=== PATIENT | female | born 1940 ===

== ENCOUNTER 2022-05-15 21:09 | Inpatient (IN) ==
[2022-05-16] MEDS ORDERED: ALBUT/IPRATROP 3MG/0.5MG NEB 3 ML VIAL NEB PRN (10:28)
--- NOTE | 2022-05-16 10:35 | History & Physical Report ---
Date of Service May 16, 2022 Assessment & Plan (1) GI bleed: Plan: presented from [facility] w/ fatigue, nausea, melena since 05/15. Also tested positive for COVID hgb 11.5, INR 1, BUN 32, Cr 1.24 at [facility]. Noted black melanotic stools +fecal occult, no hx GI bleeding in past (however noted to have passed clots in stool in the past) Admit PCU hall monitor EKG ordered, CXR for eval given covid Gi consulted PPI IV BID given melena/possible UGIB Pain control/antiemetics prn CTAP for eval given hx adhesive disease/bowel obstructions/surgeries pending imaging, consult w/ general surgery NPO x sips Labs now Hold HTN medications for now given dehydration, VSS BP 153/79 (2) Melena: Plan: large melena stool 05/15, + at [facility] PPI IV BID ordered, GI consulted CTAP ordered for eval as above given abdominal pain reported (3) COVID-19: Plan: + at [facility], reported fatigue/nausea repeat testing ordered maintaining COVID isolation precautions Supplemental O2 to maintain sats Check CRP/ESR Likely need to initiate decadron IV given SpO2 requirement however will discuss w/ supervising provider given GI bleeding (4) H/O: HTN (hypertension): Plan: on nifedipine , valsartan daily on hold currently while hydrating/imaging BP 153/79 Admission and Anticipated Discharge Date Admission Date: May 16, 2022 History of Present Illness Chief Complaint: GI bleed, melena Primary Care Provider: NO PCP 81yo female presented from [facility] with complaints of melena/GI bleed. Nausea, fatigue, black stools that began 05/15. Not on anticoagulation and never had GI bleed. Chronic intermittent crampy abdominal pain. HPI from OSH reports bowel obstructions requiring surgery before. Outside hgb reported 11.5, BUN 32, Cr 1.24. Incidentally also tested positive for COVID. SpO2 92% on room air noted, however prior to transfer appears had been 86% on room air and placed on supplemental O2, currently 97%on 2L. Per patient, nauseated since Wednesday, no vomiting. Has had 3 abdominal surgeries for removal of adhesions. Has pain across lower abdomen. Upon evaluation, patient reporting has had nausea/fatigue since Wednesday. Had some toast on Wednesday, some small amount of macaroni w/ butter on Wednesday. Large melanotic stool yesterday AM, nothing since then. No bowel movements but states she wasn't given anything to eat at [facility] either. Placed on 2L o2 at [facility] for low oxygen. She does have a moist cough but denies feeling short of breath. She notes initial issues with abdominal adhesions in 2000 when she underwent surgery with ex lap for adhesion takedown w/ Dr Stinson, then had recurrent episode in 2009 where she required removal of part of her small bowel and colon as they were twisted upon each other. Then she notes about 5-6 years ago in 2016 she had another episode of abdominal pain requiring surgery and she had her intestines cut and transferred ultimately to [place]. All other surgeries. She notes for about the past 10 months has had lower abdominal cramping and issues with moving her bowels since December. She does try and watch what she eats, but had been taking Zofran over the summer with worsening constipation. She does have lower abdominal pain currently, worse in LLQ and suprapubic region but reported generalized cramping/pain. No nausea at present but had been given IV Zofran at [place] w/ [facility]. No history of PE/DVT but has had clots in stool in past. Has been vaccinated for COVID and booster x 2. Did not get 3rd booster yet. Currently + for covid. Does have congestion but unable to bring up any sputum. Discussed obtaining CTAP and CXR for eval, labs pending, and GI consultation. Will order protonix IV BID for now. She is asking about if she is able to eat. Allergies Allergy/AdvReac Type Severity Reaction Status Date / Time No Known Allergies Allergy Unverified 05/16/22 11:27 Home Medications Medication Instructions Recorded Confirmed Type acetaminophen 650 mg 1,300 mg PO HS 05/16/22 05/16/22 History tablet,extended release melatonin 5 mg tablet 5 mg PO HS PRN Sleep 05/16/22 05/16/22 History nifedipine 30 mg tablet,extended 30 mg PO DAILY 05/16/22 05/16/22 History release 24 hr valsartan 160 mg tablet 160 mg PO DAILY 05/16/22 05/16/22 History vitamins A,C,M-tnxw-syuzdh 14,320 1 cap PO BID 05/16/22 05/16/22 History unit-226 mg-200 unit capsule (PreserVision AREDS) Past Med/Surg History Medical History (Updated 05/16/22 @ 10:33 by Lucy Aden PA-C) Adhesion of abdominal wall H/O: HTN (hypertension) Surgical History (Updated 05/16/22 @ 10:24 by Lucy Aden PA-C) H/O: hysterectomy S/P appendectomy S/P cholecystectomy Social History Smoking Status: Current every day smoker Cigarettes Per Day: 10; Second Hand Exposure: No; Do You Dip or Chew Tobacco: No; Tobacco Cessation Education Requested by Patient: No Hx Alcohol Use: Yes Alcohol type: wine Hx Substance Use: No Communication Ability: Effective Scalp Specialist Required: No Beliefs That Will Affect Care: None Current Living Situation: Family Current Living Situation Comment: lives with son Other Information That Helps Us Care for You: No Feels Safe at Home: Yes Safety Concerns: Feels Safe At This Time Assistive Devices: Denture - Upper, Denture - Lower and Glasses Review of Systems Review of Systems: All systems reviewed & are unremarkable except as noted in HPI & below Physical Exam Physical Exam: General: frail elderly woman sitting up in bed, NAD, just had labs drawn, general pallor HEENT: head normocephalic, atraumatic, mm slightly dry, trachea midline Resp: diminished in the bases w/ faint bilateral crackles, no wheezing, on 2L NC, no distress/tachypnea CV: RRR, no m/r/g, no pitting edema/calf tenderness, pulses palpable GI: +BS throughout (possibly slightly hypoactive RUQ), minimally tender epigastric region, moderate tenderness reported w/ palpation LLQ/suprapubic region, +slight distension, no guarding/rigidity, prior abd incisions noted MSK/Neuro: moves all extremities, follows commands, no focal deficit Psych: AOx3, pleasant and cooperative Skin: cool, dry Results & Data Results & Data ([facility]) Vital Signs (Past 12 Hours) Vital Signs Temp Resp BP Pulse Ox O2 Del Method O2 Flow Rate 05/16/22 09:33 36.9 C 16 153/79 H 97 Nasal Cannula 2 05/16/22 09:29 36.9 C 16 153/79 H 94 Nasal Cannula 2 Laboratory Results 05/16/22 05/16/22 05/16/22 Range/Units 10:47 10:47 10:47 WBC (4.8-10.8) K/ul RBC (3.93-5.22) M/uL Hgb (12.0-16.0) g/dl Hct (34.1-44.9) % MCV (80.0-100.0) fL MCH (25.0-34.0) pg MCHC (32.0-36.0) g/dL RDW Std Deviation (36.4-46.3) fL RDW Coeff of Edie (11.5-14.5) % Plt Count (130-400) K/uL MPV (9.4-12.3) fL Immature Gran % (Auto) % Neut % (Auto) % Lymph % (Auto) % Emery % (Auto) % Eos % (Auto) % Baso % (Auto) % Neut # (Auto) (1.4-6.5) K/uL Lymph # (Auto) (1.2-3.4) K/uL Emery # (Auto) (0.24-0.82) K/uL Eos # (Auto) (0-0.50) K/uL Baso # (Auto) (0-0.2) K/uL Immature Gran # (Auto) (0.00-0.02) K/uL ESR 26 (0-30) mm/hr Sodium Potassium Chloride Carbon Dioxide Anion Gap BUN Creatinine Est Cr Clr Drug Dosing Est GFR ( Amer) Est GFR (Non-Af Amer) BUN/Creatinine Ratio Glucose Calcium Magnesium Iron Pending TIBC Pending Unsaturated IBC Pending Transferrin % Sat Pending Ferritin Total Bilirubin AST ALT Alkaline Phosphatase C-Reactive Protein Total Protein Albumin Globulin Albumin/Globulin Ratio Procalcitonin Pending 05/16/22 05/16/22 Range/Units 10:47 10:47 WBC 5.46 (4.8-10.8) K/ul RBC 3.22 L (3.93-5.22) M/uL Hgb 10.0 L (12.0-16.0) g/dl Hct 29.6 L (34.1-44.9) % MCV 91.9 (80.0-100.0) fL MCH 31.1 (25.0-34.0) pg MCHC 33.8 (32.0-36.0) g/dL RDW Std Deviation 47.8 H (36.4-46.3) fL RDW Coeff of Edie 14.1 (11.5-14.5) % Plt Count 168 (130-400) K/uL MPV 9.8 (9.4-12.3) fL Immature Gran % (Auto) 0.2 % Neut % (Auto) 61.0 % Lymph % (Auto) 27.7 % Emery % (Auto) 9.2 % Eos % (Auto) 1.5 % Baso % (Auto) 0.4 % Neut # (Auto) 3.34 (1.4-6.5) K/uL Lymph # (Auto) 1.51 (1.2-3.4) K/uL Emery # (Auto) 0.50 (0.24-0.82) K/uL Eos # (Auto) 0.08 (0-0.50) K/uL Baso # (Auto) 0.02 (0-0.2) K/uL Immature Gran # (Auto) 0.01 (0.00-0.02) K/uL ESR (0-30) mm/hr Sodium Pending Potassium Pending Chloride Pending Carbon Dioxide Pending Anion Gap Pending BUN Pending Creatinine Pending Est Cr Clr Drug Dosing Pending Est GFR ( Amer) Pending Est GFR (Non-Af Amer) Pending BUN/Creatinine Ratio Pending Glucose Pending Calcium Pending Magnesium Pending Iron TIBC Unsaturated IBC Transferrin % Sat Ferritin Pending Total Bilirubin Pending AST Pending ALT Pending Alkaline Phosphatase Pending C-Reactive Protein Pending Total Protein Pending Albumin Pending Globulin Pending Albumin/Globulin Ratio Pending Procalcitonin Supervising Physician Co-Signing Physician Notes Patient seen and examined at bedside. Obtained history and physical examination during face to face encounter. Reviewed above note and agree with it. Discussed plan of care with Aden APC, and patient. Patient will be closely monitored for possible GI bleed, check hemoglobin. NPO, and consult GI for possible scope. Hold steroids for COVID as inflammatory markers are negative in setting of GI bleed. PG Care Time/CCT Total # of Minutes Spent Total Time Spent with Patient: Total time spent is greater than 50% in coordination of care (as documented) at patient's floor/unit and/or counseling patient: Coding Level of Care Code 72922 Initial Inpt Care Lvl 3 Diagnoses GI bleed K92.2 Melena K92.1 COVID-19 U07.1 H/O: HTN (hypertension) Z86.79
[2022-05-16 11:00] LABS: Basophils # (auto) 0.02 K/uL (0-0.2); Basophils % (auto) 0.4 %; Eosinophils # (auto) 0.08 K/uL (0-0.50); Eosinophils % (auto) 1.5 %; Hematocrit (blood only) 29.6 % (34.1-44.9); Immature Granulocytes # (auto) 0.01 K/uL (0.00-0.02); Immature Granulocytes % (auto) 0.2 %; Lymphocytes # (auto) 1.51 K/uL (1.2-3.4); Lymphocytes % (auto) 27.7 %; Mean Corpuscular Hemoglobin 31.1 pg (25.0-34.0); Mean Corpuscular Hgb Conc 33.8 g/dL (32.0-36.0); Mean Corpuscular Volume 91.9 fL (80.0-100.0); Mean Platelet Volume 9.8 fL (9.4-12.3); Monocytes % (auto) 9.2 %; Neutrophils # (auto) 3.34 K/uL (1.4-6.5); Platelet Count 168 K/uL (130-400); RDW Coefficient of Variation 14.1 % (11.5-14.5); RDW Standard Deviation 47.8 fL (36.4-46.3); Red Blood Count 3.22 M/uL (3.93-5.22); White Blood Count 5.46 K/ul (4.8-10.8)
[2022-05-16] MEDS ORDERED: ONDANSETRON INJ 2 MG/ML 2 ML VIAL IV PRN (11:22)
[2022-05-16] MEDS ORDERED: ACETAMINOPHEN 1,000 MG/100 ML VIAL IV PRN (11:22)
[2022-05-16] MEDS ORDERED: POTASSIUM CHLORIDE 10 MEQ in SODIUM CHLORIDE 0.9% 1000ML 1,000 ML IV SCH (11:30)
[2022-05-16 11:33] LABS: Alanine Aminotransferase 12 U/L (7-52); Albumin Globulin Ratio 1.4 (0.9-2); Albumin Level 3.6 gm/dl (3.4-5.0); Alkaline Phosphatase 58 U/L (34-104); Anion Gap 5 (3-11); Aspartate Aminotransferase 21 U/L (13-39); BUN Creatinine Ratio 21.4 (10-20); Bilirubin,Total 0.4 mg/dl (0.2-1.0); Blood Urea Nitrogen 22 mg/dl (6-23); C Reactive Protein < 0.50 mg/dl (0-0.5); Calcium 9.1 mg/dl (8.5-10.1); Carbon Dioxide 28 mmol/L (21-32); Chloride 102 mmol/L (98-107); Creatinine Clr Calc Pharmacy 29.2 ml/min; Est GFR (African American) 58.2 ml/min; Est GFR (Non-African American) 50.2 ml/min; Globulin 2.6 gm/dl (2.5-4.0); Glucose 77 mg/dl (70-99(Fasting)); Iron 33 mcg/dl (35-150); Magnesium 1.8 mg/dl (1.7-2.4); Potassium 4.6 mmol/L (3.5-5.1); Sodium 135 mmol/L (136-145); Total Iron Binding Cap Calc 293 mcg/dl (250-450); Total Protein 6.2 gm/dl (6.0-8.3); Transferrin (FE) Percent Satur 11 % (15-50); Unsaturated Iron Binding Cap 260 mcg/dl (155-355)
[2022-05-16] MEDS ORDERED: OPTIRAY 350 100ml IV ONE (11:40)
[2022-05-16 11:42] LABS: Ferritin 170.1 ng/ml (8-388)
--- NOTE | 2022-05-16 11:57 | CT Scan Report ---
CT OF THE ABDOMEN AND PELVIS WITH CONTRAST CLINICAL HISTORY: GI bleed, melena, hx obstruction, abdominal pain. COMPARISON STUDY: None. TECHNIQUE: Following IV administration of 86 mL of Optiray, axial images of the abdomen and pelvis we re obtained from the lung bases to the proximal femurs. Images were reviewed in the axial, sagittal, and coronal planes. IV contrast was administered without complication. Automated exposure control wa s utilized for the study. A dose lowering technique was utilized adhering to the principles of ALARA . CT DOSE: 211.58 mGy.cm FINDINGS: Lung bases are unremarkable. No pneumatosis, free air or portal venous gas is present. Live r, adrenal glands, kidneys and pancreas are unremarkable. Calcifications within the renal sinuses are likely vascular in etiology. There is no hydronephrosis. There is no biliary or pancreatic ductal di latation. Pancreatic glandular atrophy is noted. Hypodensity along the splenic capsule is likely traveling passenger agent teresa. IVC filter is in place. There is extensive plaque within the abdominal aorta and branch vessels. Abdominal aorta is ectatic, measuring 2.6 cm. There is no evidence for a bowel obstruction. Caliber and wall thickness of small and large bowel are normal. Colonic diverticulosis is noted without evide nce for acute diverticulitis. There is no lymphadenopathy. No ascites is present. No acute fracture o r suspicious lesion is identified within the visualized skeletal structures. IMPRESSION: 1. No acute process within the abdomen or pelvis. 2. No bowel obstruction. No bowel wall thickening. Colonic diverticulosis without evidence for acute diverticulitis. No source for GI bleed identified. 3. Extensive atherosclerotic plaque of the abdominal aorta and branch vessels. Ectatic abdominal aort a, measuring 2.6 cm. ACT 112: Negative or not required by law. Electronically signed by: Gualberto Delgadillo M.D. 05/16/2022 11:55 AM
--- NOTE | 2022-05-16 12:36 | XRay Report ---
XR chest 1V portable CLINICAL HISTORY: COVID, hypoxia COMPARISON STUDY: No previous studies for comparison. FINDINGS: Lung volumes are normal. Lungs are clear. There is no pneumothorax or pleural effusion. Car diac size is normal. Mediastinal contours are normal. There is no evidence for pulmonary edema. IMPRESSION: No acute cardiopulmonary findings. ACT 112: Negative or not required by law. Electronically signed by: Gualberto Delgadillo M.D. 05/16/2022 12:35 PM
--- NOTE | 2022-05-16 12:40 | Gastrointestinal Consultation ---
Date of Consultation May 16, 2022 Assessment & Plan (1) COVID-19: (2) Melena: 81 yo female with history of multiple abd surgeries and adhesions causing bowel obstructions in the past admitted with nausea and 1 episode of melena yesterday at home. Hemodynamically stable. COVID positive with cough and O2 requirement. No signs of on-going GI bleed. Plan Conservative mgt IV PPI BID Clear liquids today. No NSAIDs. Mgt of COVID per primary service CT pending. History of Present Illness Reason for Consultation: melena x 1, nausea Attending Physician: Melquiades Kauffman History of Present Illness 81 yo female with HTN and history of multiple abd surgeries and bowel obstructio ns related ot adhesions s/p small bowel and partial colon resection in the past. Allie has chronic abd related ot adhesions. She presented from OSH after going there with complaints of nausea since Wednesday. She has problems with constipation and has to take MiraLax at home. She did not have a BM since Wednesday until yesterday when she had an episode of black stool at home and then proceeded to go the ER. She has not had a BM since. Her hgb is 10 (baseline unknown). BUN 32 and cr 1.2. She had CT this AM which is pending at this time. She denies any abd pain at present. No known history of UGI bleed. She is also noted to have a cough and is COVID positive. Requiring O2 at 2L/min to keep sat in the 90's. If possible she would like ot avoid procedures. Not on PPI at home. She does take 1-2 ibuprofen a few times a week at home. Allergies Allergy/AdvReac Type Severity Reaction Status Date / Time No Known Allergies Allergy Unverified 05/16/22 11:27 Home Medications Medication Instructions Recorded Confirmed Type acetaminophen 650 mg 1,300 mg PO HS 05/16/22 05/16/22 History tablet,extended release melatonin 5 mg tablet 5 mg PO HS PRN Sleep 05/16/22 05/16/22 History nifedipine 30 mg tablet,extended 30 mg PO DAILY 05/16/22 05/16/22 History release 24 hr valsartan 160 mg tablet 160 mg PO DAILY 05/16/22 05/16/22 History vitamins A,C,G-zdfo-kaqloo 14,320 1 cap PO BID 05/16/22 05/16/22 History unit-226 mg-200 unit capsule (PreserVision AREDS) Patient History Medical History (Updated 05/16/22 @ 10:33 by Lucy Aden PA-C) Adhesion of abdominal wall H/O: HTN (hypertension) Surgical History (Updated 05/16/22 @ 10:24 by Lucy Aden PA-C) H/O: hysterectomy S/P appendectomy S/P cholecystectomy Social History Smoking Status: Current every day smoker Cigarettes Per Day: 10; Second Hand Exposure: No; Do You Dip or Chew Tobacco: No; Tobacco Cessation Education Requested by Patient: No Hx Alcohol Use: Yes Alcohol type: wine Hx Substance Use: No Communication Ability: Effective Felt Carbonizer Required: No Beliefs That Will Affect Care: None Current Living Situation: Family Current Living Situation Comment: lives with son Other Information That Helps Us Care for You: No Feels Safe at Home: Yes Safety Concerns: Feels Safe At This Time Assistive Devices: Denture - Upper, Denture - Lower and Glasses Review of Systems Review of Systems: All systems reviewed & are unremarkable except as noted in HPI & below Physical Exam Constitutional: WD/WN, vitals as above Respiratory: normal respiratory effort, lungs clear to auscultation Cardiovascular: RRR, no murmur, no edema Gastrointestinal (Abdomen): Inspection/Auscultation: + abdominal surgical scar Percussion/Palpation: + abdomen tender (mild) and abdomen soft Results & Data ([facility]) Vital Signs (Past 12 Hours) Vital Signs Temp Pulse Resp BP Pulse Ox O2 Del Method O2 Flow Rate 05/16/22 12:22 36.7 C 71 16 165/76 H 94 Room Air 05/16/22 09:33 36.9 C 16 153/79 H 97 Nasal Cannula 2 05/16/22 09:29 36.9 C 16 153/79 H 94 Nasal Cannula [address] pending
[2022-05-16] MEDS: PANTOprazole 40 MG in SYRINGE 0 ML IV SCH ×2 (12:48→19:37)
[2022-05-16] MEDS: MAGNESIUM SULFATE / D5W 1 GM/100 ML BAG IV SCH ×2 (12:49→14:31)
[2022-05-16] MEDS ORDERED: IRON SUCROSE 200 MG in 0.9 % SODIUM CHLORIDE 100 ML IV ONE (14:30)
[2022-05-16] MEDS ORDERED: SODIUM CHLORIDE 0.9% 1000ML 1,000 ML IV SCH (15:15)
[2022-05-16 17:50] LABS: Hematocrit (blood only) 30.9 % (34.1-44.9); Hemoglobin 10.4 g/dl (12.0-16.0)
[2022-05-16] MEDS: NIFEdipine EXTENDED REL 30 MG TABCR PO SCH (19:36)
[2022-05-17 06:13] LABS: Hematocrit (blood only) 29.1 % (34.1-44.9); Hemoglobin 9.8 g/dl (12.0-16.0); Mean Corpuscular Hemoglobin 31.3 pg (25.0-34.0); Mean Corpuscular Hgb Conc 33.7 g/dL (32.0-36.0); Mean Platelet Volume 9.8 fL (9.4-12.3); Platelet Count 147 K/uL (130-400); RDW Standard Deviation 47.1 fL (36.4-46.3); Red Blood Count 3.13 M/uL (3.93-5.22); White Blood Count 7.72 K/ul (4.8-10.8)
[2022-05-17 06:37] LABS: Albumin Globulin Ratio 1.4 (0.9-2); Albumin Level 3.4 gm/dl (3.4-5.0); BUN Creatinine Ratio 17.2 (10-20); Bilirubin,Total 0.3 mg/dl (0.2-1.0); Calcium 8.7 mg/dl (8.5-10.1); Creatinine Clr Calc Pharmacy 34.8 ml/min; Est GFR (African American) 71.4 ml/min; Est GFR (Non-African American) 61.6 ml/min; Globulin 2.5 gm/dl (2.5-4.0); Magnesium 2.2 mg/dl (1.7-2.4); Potassium 4.5 mmol/L (3.5-5.1); Total Protein 5.9 gm/dl (6.0-8.3)
[2022-05-17 07:05] LABS: Vitamin B12 556 pg/ml (180-914)
--- NOTE | 2022-05-17 07:48 | Hospitalist Progress Note ---
Date of Service May 17, 2022 Assessment & Plan (1) COVID-19: Plan: Admitted with melena, incidentally found positive prior to transfer to our facility as direct admission as O2 dropped to 86 % on RA (no imaging obtained) -- hx smoking, 10-12 cigarettes daily currently, never followed w/ pulm, no prior PFTs or maintenance inhalers Reports nausea/fatigue symptoms since this past Wednesday (05/11), no sick contacts that she is aware of and no prior + Covid testing. Has been vaccinated and boosted x 2 Remains on isolation precautions CRP <0.5, WBC without elevation. Afebrile EKG w/o ischemic changes, noted PACs. NSR on monitor w PACs on telemetry O2 via 2L on admit and was actually 95% on RA evening 05/16 Was utilizing 2L this morning with acute worsening requirements to 5L --> 7L --> 12L oxymask this morning around 11am and patient was evaluated with coarse breath sounds/rales throughout and reported clear/white sputum but not really able to clear secretions very well and added hypertonic saline nebulizers to help CRP repeated, still without elevation Despite patient with IVC filter seen on CTAP placed in [id number] --> ordered CTA for PE given +COVID testing * CTA NEGATIVE for PE, but did note moderate-severe emphysema, NO consolidation typical for PNA or pleural effusion. Fluid/debris is seen within the lower lobe airways bilaterally, left greater than right. This could represent mucous plugging. Correlate clinically for evidence of aspiration. Given acute increase in O2 requirement, appears mucus plugging could account for such, however did check BNP given increased requirement and hyponatremia on AM labs (TSH wnl) and will check ECHO for completeness given no prior records. Hypertonic saline nebs as ordered, changed duonebs to scheduled Continue incentive spirometer as previously ordered (has been using), added flutter valve, mucinex Avoiding Decadron currently in setting of GI bleed/no elevation in inflammatory markers, however if without significant improvements by this evening, will consider adding Azithro/Decadron DVT prophylaxis -- not on heparin/Lovenox in setting of GI bleed, has been ambulating, continue SCDs/jaki hose and monitor for any evidence DVT (2) GI bleed: Plan: presented from [facility] w/ fatigue, nausea, melena since 05/15. Also tested positive for COVID hgb 11.5, INR 1, BUN 32, Cr 1.24 at [facility]. Noted black melanotic stools +fecal occult, no hx GI bleeding in past (however noted to have passed clots in stool in the past) CTAP obtained given prior reported for obstructions/resection and not passing gas/abdominal pain on exam 05/16 --> no obstructions. No infectious etiology. Of note, DOES note IVC filter -- again, patient denies known hx PE/DVT and was told that they didn't know what was wrong with her in [id number] w/ the bowel operation which nicked her bowel requiring tx to [place] for "blood infection", ?septic emboli. Req outpatient records for prior surgeries from [facility] consulted but no plans for scope inpatient, can have outpatient follow up and rec'd advancement of diet from clears on admission to regular AHA diet Hgb stable on repeat even with IVF ordered on admit as initially NPO for possible scope No further bowel movements but is passing gas/no pain on exam (does have slight epigastric discomfort -- consider adding carafate pending response) Continue PPI BID -- can convert to PO BID this evening vs AM. Fecal occult ordered for testing for confirmation. Had been taking 200mg ibuprofen couple of times in the afternoon for pain. No NSAIDs Clear liquid diet on 05/16 -> advanced to AHA diet today, passing gas, denies abdominal pain however does have slight epigastric discomfort -- consider adding carafate if any issues Monitor CBC on repeat or with any melanotic/bleeding in stool (3) Melena: Plan: large melena stool 05/15, + at [facility], nothing since PPI IV BID ordered, GI consulted CTAP as above, monitor CBC/any further bleeding. Encouraged bowel regimen, add miralax daily. She reports passing LOTs of gas, no increased abdominal pain. No obstruction on CTAP (4) H/O: HTN (hypertension): Plan: on nifedipine 30mg , valsartan 160mg daily Had been held while NPO on admit/IVF ordered, nifedipine resumed evening 05/16 Resumed losartan this morning, BP/Cr stable 141/64 Given atherosclerotic plaque on CTAP imaging, check lipids in AM/statin for prevention (5) Emphysema lung: Plan: noted on CTAP, no prior dx or use of maintenance inhalers at home or prior pulmonary follow up/PFT testing outpatient Tx for COVID as outlined above but would rec patient w/ pulm f/u at d/c for outpt PFT, addition LABA/LAMA (6) Tobacco consumption: Plan: current smoker, reports 10-12 cigarettes daily- no cravings at this time/need for nicotine patch encouraged cessation, she is well aware of detriments to her health continued discussions, rec nicotine patch/gum at d/c if patient agreeable Plan continued inpatient stay advanced to regular diet, monitor for any further bleeding added hypertonic saline/changed duonebs to scheduled, incentive sp irometer/flutter valve, mucinex Will consult PT/OT for tomorrow Admission and Anticipated Discharge Date Admission Date: May 16, 2022 Subjective Eval around 11am, up to 12L Oxymask. States not feeling extremeley short of breath but does have a moist cough and some shortness of breath.Coughing up clear/white sputum, however not coughing up a whole bunch. Is a smoker , about 10-12 per day. Discussed IVC filter on imaging. She states in [id number] when she had the nicked bowel/bleeding/blood infection, they told her "I don't have a clue" and told her she needed it even though she didn't want it. She denies ever having a DVT or PE, however she does also note she was so sick during that time that maybe someone may have mentioned it but she doesn't remember but that she read lots of things online about it not working like it used to. 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 States anytime she's ever had a CXR they said she's fine. Not on any maintenance inhalers. Discussed checking labs, she is agreeable to remdesivir if needed/steroids if CRP elevated. She does have some epigastric pressure but no chest pain/radiation of pain. No abdominal pain reported and passing lots of gas. Urinating frequently without issue. Denies any fever/chills. No nausea/vomiting. Checking CT chest to eval for PE Review of Systems Review of Systems: All systems reviewed & are unremarkable except as noted in HPI & below Physical Exam Physical Exam: General: frail elderly woman sitting up in bed, NAD but up to 12L Oxymask with SpO2 96%, fatigued appearing HEENT: head normocephalic, atraumatic, mmm, trachea midline Resp: diminished in the bases w/ faint bilateral crackles, COARSE breath sounds/ rales throughout posterior lung ruiz, end expiratory wheezing, on 12L Oxymask, no tachypnea, prolonged expiratory phase noted, +moist cough CV: RRR, no m/r/g, no pitting edema/calf tenderness, pulses palpable GI: +BS, distended, nontender w/ exception slight tenderness epigastric region MSK/Neuro: no focal deficit, no slurred speech/facial droop, follows commands Psych: AOx3, pleasant and cooperative Skin: warm, dry Results & Data Results & Data ([facility]) Vital Signs (Past 12 Hours) Vital Signs Temp Pulse Resp BP Pulse Ox O2 Del Method O2 Flow Rate 05/17/22 04:47 36.7 C 64 18 136/64 95 Nasal Cannula 2.0 05/16/22 23:13 36.7 C 61 18 167/75 H 97 Nasal Cannula 2.0 05/16/22 19:52 36.9 C 58 L 18 157/75 H 97 Nasal Cannula 2.0 Laboratory Results 05/17/22 05/17/22 05/17/22 Range/Units 05:46 05:46 05:46 WBC (4.8-10.8) K/ul RBC (3.93-5.22) M/uL Hgb (12.0-16.0) g/dl Hct (34.1-44.9) % MCV (80.0-100.0) fL MCH (25.0-34.0) pg MCHC (32.0-36.0) g/dL RDW Std Deviation (36.4-46.3) fL RDW Coeff of Edie (11.5-14.5) % Plt Count (130-400) K/uL MPV (9.4-12.3) fL Immature Gran % (Auto) % Neut % (Auto) % Lymph % (Auto) % [place] % (Auto) % Eos % (Auto) % Baso % (Auto) % Neut # (Auto) (1.4-6.5) K/uL Lymph # (Auto) (1.2-3.4) K/uL [place] # (Auto) (0.24-0.82) K/uL Eos # (Auto) (0-0.50) K/uL Baso # (Auto) (0-0.2) K/uL Immature Gran # (Auto) (0.00-0.02) K/uL ESR (0-30) mm/hr Sodium 134 L (136-145) mmol/L Potassium 4.5 (3.5-5.1) mmol/L Chloride 102 (98-107) mmol/L Carbon Dioxide 26 (21-32) mmol/L Anion Gap 6 (3-11) BUN 15 (6-23) mg/dl Creatinine 0.87 (0.6-1.2) mg/dl POC Creatinine (0.6-1.3) mg/dl Est Cr Clr Drug Dosing 34.8 ml/min Est GFR ( Amer) 71.4 ml/min Est GFR (Non-Af Amer) 61.6 ml/min BUN/Creatinine Ratio 17.2 (10-20) Glucose 69 L (70-99(Fasting)) mg/dl Calcium 8.7 (8.5-10.1) mg/dl Magnesium 2.2 (1.7-2.4) mg/dl Iron (35-150) mcg/dl TIBC (250-450) mcg/dl Unsaturated IBC (155-355) mcg/dl Transferrin % Sat (15-50) % Ferritin (8-388) ng/ml Total Bilirubin 0.3 (0.2-1.0) mg/dl AST 21 (13-39) U/L ALT 11 (7-52) U/L Alkaline Phosphatase 55 (34-104) U/L C-Reactive Protein (0-0.5) mg/dl Total Protein 5.9 L (6.0-8.3) gm/dl Albumin 3.4 (3.4-5.0) gm/dl Globulin 2.5 (2.5-4.0) gm/dl Albumin/Globulin Ratio 1.4 (0.9-2) Vitamin B12 556 (180-914) pg/ml Folate > 22.30 (>5.38) ng/ml Procalcitonin (0-0.5) ng/ml TSH 1.092 (0.300-4.500) uIu/ml SARS-CoV-2 (PCR) (Negative) 05/17/22 05/16/2222 Range/Units 05:46 17:41 11:39 WBC 7.72 (4.8-10.8) K/ul RBC 3.13 L (3.93-5.22) M/uL Hgb 9.8 L 10.4 L (12.0-16.0) g/dl Hct 29.1 L 30.9 L (34.1-44.9) % MCV 93.0 (80.0-100.0) fL MCH 31.3 (25.0-34.0) pg MCHC 33.7 (32.0-36.0) g/dL RDW Std Deviation 47.1 H (36.4-46.3) fL RDW Coeff of Edie 14.0 (11.5-14.5) % Plt Count 147 (130-400) K/uL MPV 9.8 (9.4-12.3) fL Immature Gran % (Auto) % Neut % (Auto) % Lymph % (Auto) % [place] % (Auto) % Eos % (Auto) % Baso % (Auto) % Neut # (Auto) (1.4-6.5) K/uL Lymph # (Auto) (1.2-3.4) K/uL [place] # (Auto) (0.24-0.82) K/uL Eos # (Auto) (0-0.50) K/uL Baso # (Auto) (0-0.2) K/uL Immature Gran # (Auto) (0.00-0.02) K/uL ESR (0-30) mm/hr Sodium (136-145) mmol/L Potassium (3.5-5.1) mmol/L Chloride (98-107) mmol/L Carbon Dioxide (21-32) mmol/L Anion Gap (3-11) BUN (6-23) mg/dl Creatinine (0.6-1.2) mg/dl POC Creatinine 1.0 (0.6-1.3) mg/dl Est Cr Clr Drug Dosing ml/min Est GFR ( Amer) ml/min Est GFR (Non-Af Amer) ml/min BUN/Creatinine Ratio (10-20) Glucose (70-99(Fasting)) mg/dl Calcium (8.5-10.1) mg/dl Magnesium (1.7-2.4) mg/dl Iron (35-150) mcg/dl TIBC (250-450) mcg/dl Unsaturated IBC (155-355) mcg/dl Transferrin % Sat (15-50) % Ferritin (8-388) ng/ml Total Bilirubin (0.2-1.0) mg/dl AST (13-39) U/L ALT (7-52) U/L Alkaline Phosphatase (34-104) U/L C-Reactive Protein (0-0.5) mg/dl Total Protein (6.0-8.3) gm/dl Albumin (3.4-5.0) gm/dl Globulin (2.5-4.0) gm/dl Albumin/Globulin Ratio (0.9-2) Vitamin B12 (180-914) pg/ml Folate (>5.38) ng/ml Procalcitonin (0-0.5) ng/ml TSH (0.300-4.500) uIu/ml SARS-CoV-2 (PCR) (Negative) 05/16/22 05/16/22 05/16/22 Range/Units 11:15 10:47 10:47 WBC (4.8-10.8) K/ul RBC (3.93-5.22) M/uL Hgb (12.0-16.0) g/dl Hct (34.1-44.9) % MCV (80.0-100.0) fL MCH (25.0-34.0) pg MCHC (32.0-36.0) g/dL RDW Std Deviation (36.4-46.3) fL RDW Coeff of Edie (11.5-14.5) % Plt Count (130-400) K/uL MPV (9.4-12.3) fL Immature Gran % (Auto) % Neut % (Auto) % Lymph % (Auto) % [place] % (Auto) % Eos % (Auto) % Baso % (Auto) % Neut # (Auto) (1.4-6.5) K/uL Lymph # (Auto) (1.2-3.4) K/uL [place] # (Auto) (0.24-0.82) K/uL Eos # (Auto) (0-0.50) K/uL Baso # (Auto) (0-0.2) K/uL Immature Gran # (Auto) (0.00-0.02) K/uL ESR (0-30) mm/hr Sodium (136-145) mmol/L Potassium (3.5-5.1) mmol/L Chloride (98-107) mmol/L Carbon Dioxide (21-32) mmol/L Anion Gap (3-11) BUN (6-23) mg/dl Creatinine (0.6-1.2) mg/dl POC Creatinine (0.6-1.3) mg/dl Est Cr Clr Drug Dosing ml/min Est GFR ( Amer) ml/min Est GFR (Non-Af Amer) ml/min BUN/Creatinine Ratio (10-20) Glucose (70-99(Fasting)) mg/dl Calcium (8.5-10.1) mg/dl Magnesium (1.7-2.4) mg/dl Iron 33 L (35-150) mcg/dl TIBC 293 (250-450) mcg/dl Unsaturated IBC 260 (155-355) mcg/dl Transferrin % Sat 11 L (15-50) % Ferritin (8-388) ng/ml Total Bilirubin (0.2-1.0) mg/dl AST (13-39) U/L ALT (7-52) U/L Alkaline Phosphatase (34-104) U/L C-Reactive Protein (0-0.5) mg/dl Total Protein (6.0-8.3) gm/dl Albumin (3.4-5.0) gm/dl Globulin (2.5-4.0) gm/dl Albumin/Globulin Ratio (0.9-2) Vitamin B12 (180-914) pg/ml Folate (>5.38) ng/ml Procalcitonin 0.13 (0-0.5) ng/ml TSH (0.300-4.500) uIu/ml SARS-CoV-2 (PCR) POSITIVE A* (Negative) 05/16/22 05/16/22 05/16/22 Range/Units 10:47 10:47 10:47 WBC 5.46 (4.8-10.8) K/ul RBC 3.22 L (3.93-5.22) M/uL Hgb 10.0 L (12.0-16.0) g/dl Hct 29.6 L (34.1-44.9) % MCV 91.9 (80.0-100.0) fL MCH 31.1 (25.0-34.0) pg MCHC 33.8 (32.0-36.0) g/dL RDW Std Deviation 47.8 H (36.4-46.3) fL RDW Coeff of Edie 14.1 (11.5-14.5) % Plt Count 168 (130-400) K/uL MPV 9.8 (9.4-12.3) fL Immature Gran % (Auto) 0.2 % Neut % (Auto) 61.0 % Lymph % (Auto) 27.7 % [place] % (Auto) 9.2 % Eos % (Auto) 1.5 % Baso % (Auto) 0.4 % Neut # (Auto) 3.34 (1.4-6.5) K/uL Lymph # (Auto) 1.51 (1.2-3.4) K/uL [place] # (Auto) 0.50 (0.24-0.82) K/uL Eos # (Auto) 0.08 (0-0.50) K/uL Baso # (Auto) 0.02 (0-0.2) K/uL Immature Gran # (Auto) 0.01 (0.00-0.02) K/uL ESR 26 (0-30) mm/hr Sodium 135 L (136-145) mmol/L Potassium 4.6 (3.5-5.1) mmol/L Chloride 102 (98-107) mmol/L Carbon Dioxide 28 (21-32) mmol/L Anion Gap 5 (3-11) BUN 22 (6-23) mg/dl Creatinine 1.03 (0.6-1.2) mg/dl POC Creatinine (0.6-1.3) mg/dl Est Cr Clr Drug Dosing 29.2 ml/min Est GFR ( Amer) 58.2 ml/min Est GFR (Non-Af Amer) 50.2 ml/min BUN/Creatinine Ratio 21.4 H (10-20) Glucose 77 (70-99(Fasting)) mg/dl Calcium 9.1 (8.5-10.1) mg/dl Magnesium 1.8 (1.7-2.4) mg/dl Iron (35-150) mcg/dl TIBC (250-450) mcg/dl Unsaturated IBC (155-355) mcg/dl Transferrin % Sat (15-50) % Ferritin 170.1 (8-388) ng/ml Total Bilirubin 0.4 (0.2-1.0) mg/dl AST 21 (13-39) U/L ALT 12 (7-52) U/L Alkaline Phosphatase 58 (34-104) U/L C-Reactive Protein < 0.50 (0-0.5) mg/dl Total Protein 6.2 (6.0-8.3) gm/dl Albumin 3.6 (3.4-5.0) gm/dl Globulin 2.6 (2.5-4.0) gm/dl Albumin/Globulin Ratio 1.4 (0.9-2) Vitamin B12 (180-914) pg/ml Folate (>5.38) ng/ml Procalcitonin (0-0.5) ng/ml TSH (0.300-4.500) uIu/ml SARS-CoV-2 (PCR) (Negative) Diagnostic Findings Abdomen/Pelvis CT 05/16/22 11:01 CT OF THE ABDOMEN AND PELVIS WITH CONTRAST CLINICAL HISTORY: GI bleed, melena, hx obstruction, abdominal pain. COMPARISON STUDY: None. TECHNIQUE: Following IV administration of 86 mL of Optiray, axial images of the abdomen and pelvis were obtained from the lung bases to the proximal femurs. Images were reviewed in the axial, sagittal, and coronal planes. IV contrast was administered without complication. Automated exposure control was utilized for the study. A dose lowering technique was utilized adhering to the principles of ALARA. CT DOSE: 211.58 mGy.cm FINDINGS: Lung bases are unremarkable. No pneumatosis, free air or portal venous gas is present. Liver, adrenal glands, kidneys and pancreas are unremarkable. Calcifications within the renal sinuses are likely vascular in etiology. There is no hydronephrosis. There is no biliary or pancreatic ductal dilatation. Pancreatic glandular atrophy is noted. Hypodensity along the splenic capsule is likely chronic. IVC filter is in place. There is extensive plaque within the abdominal aorta and branch vessels. Abdominal aorta is ectatic, measuring 2.6 cm. There is no evidence for a bowel obstruction. Caliber and wall thickness of small and large bowel are normal. Colonic diverticulosis is noted without evidence for acute diverticulitis. There is no lymphadenopathy. No ascites is present. No acute fracture or suspicious lesion is identified within the visualized skeletal structures. IMPRESSION: 1. No acute process within the abdomen or pelvis. 2. No bowel obstruction. No bowel wall thickening. Colonic diverticulosis without evidence for acute diverticulitis. No source for GI bleed identified. 3. Extensive atherosclerotic plaque of the abdominal aorta and branch vessels. Ectatic abdominal aorta, measuring 2.6 cm. ACT 112: Negative or not required by law. Electronically signed by: Gualberto Delgadillo M.D. 05/16/2022 11:55 AM Chest X-Ray 05/16/22 11:01 XR chest 1V portable CLINICAL HISTORY: COVID, hypoxia COMPARISON STUDY: No previous studies for comparison. FINDINGS: Lung volumes are normal. Lungs are clear. There is no pneumothorax or pleural effusion. Cardiac size is normal. Mediastinal contours are normal. There is no evidence for pulmonary edema. IMPRESSION: No acute cardiopulmonary findings. ACT 112: Negative or not required by law. Electronically signed by: Gualberto Delgadillo M.D. 05/16/2022 12:35 PM Chest CTA 05/17/22 10:48 CT ANGIOGRAM OF THE CHEST CLINICAL HISTORY: Cough and dyspnea. Covid. COMPARISON STUDY: Chest x-ray dated 05/16/2022. TECHNIQUE: Following the IV administration of 90 cc of Optiray 320, CT angiogram of the chest was performed from the upper abdomen to the thoracic inlet utilizing the pulmonary embolus protocol. Images are reviewed in the axial, sagittal, and coronal planes. 3-D MIPS images are created and assessed. IV contrast was administered without complication. A dose lowering technique was utilized adhering to the principles of ALARA. CT DOSE: 240.68 mGy.cm FINDINGS: Thyroid: Normal in size and heterogeneous attenuation. Thoracic aorta: There is advanced atherosclerotic calcification of the thoracic aorta, which is normal in caliber and demonstrates standard 3-vessel arch anatomy. No dissection is seen. Pulmonary vasculature: The main pulmonary arteries are dilated suggesting pulmonary artery hypertension. There are no filling defects identified in main, lobar, or segmental pulmonary branches to suggest pulmonary embolus. Heart: The heart is normal in size and without pericardial effusion. The coronary arteries are densely calcified. Lungs and pleural spaces: There is moderate to advanced emphysema. No air space consolidation typical for pneumonia or pleural effusion is identified. Foci of scarring/atelectasis are seen throughout both lungs. There is diffuse peribronchial thickening. Debris/secretions are seen within the lower lobe airways, left greater than right. Mediastinum: There is no mediastinal lymphadenopathy. Roya: Clear. Axillae: There is no axillary lymphadenopathy. Upper abdomen: Partially visualized upper abdominal viscera is within normal limits. Skeletal structures: The skeletal structures are osteopenic. No lytic or blastic bony lesions are seen. Degenerative change and hyperkyphosis is noted in the thoracic spine. IMPRESSION: 1. There is no evidence of pulmonary embolus in the main, lobar, or segmental pulmonary arteries. 2. Moderate to severe emphysema. 3. There is no airspace consolidation typical for pneumonia or pleural effusion. 4. Diffuse peribronchial thickening suggests bronchitis/reactive airway disease. 5. Fluid/debris is seen within the lower lobe airways bilaterally, left greater than right. This could represent mucous plugging. Correlate clinically for evidence of aspiration. 6. Additional findings as above. ACT 112: Negative or not required by law. Electronically signed by: João Bobo M.D. 05/17/2022 11:55 AM PG Care Time/CCT Total # of Minutes Spent Total Time Spent with Patient: Total time spent is greater than 50% in coordination of care (as documented) at patient's floor/unit and/or counseling patient: Coding Level of Care Code 86774 Subseq Hosp Care Lvl 3 Diagnoses COVID-19 U07.1 GI bleed K92.2 Melena K92.1 H/O: HTN (hypertension) Z86.79 Emphysema lung J43.9 Tobacco consumption Z72.0
[2022-05-17] MEDS ORDERED: IRON SUCROSE 200 MG in 0.9 % SODIUM CHLORIDE 100 ML IV ONE (08:00)
[2022-05-17] MEDS: NIFEdipine EXTENDED REL 30 MG TABCR PO SCH (08:02)
[2022-05-17] MEDS: PANTOprazole 40 MG in SYRINGE 0 ML IV SCH ×2 (08:02→20:24)
[2022-05-17] MEDS ORDERED: OPTIRAY 320 500ml IV ONE (11:35)
[2022-05-17] MEDS: VALSARTAN 80 MG TAB PO SCH (11:54)
--- NOTE | 2022-05-17 11:56 | CT Scan Report ---
CT ANGIOGRAM OF THE CHEST CLINICAL HISTORY: Cough and dyspnea. Covid. COMPARISON STUDY: Chest x-ray dated 05/16/2022. TECHNIQUE: Following the IV administration of 90 cc of Optiray 320, CT angiogram of the chest was per formed from the upper abdomen to the thoracic inlet utilizing the pulmonary embolus protocol. Images are reviewed in the axial, sagittal, and coronal planes. 3-D MIPS images are created and assessed. IV contrast was administered without complication. A dose lowering technique was utilized adhering to the principles of ALARA. CT DOSE: 240.68 mGy.cm FINDINGS: Thyroid: Normal in size and heterogeneous attenuation. Thoracic aorta: There is advanced atherosclerotic calcification of the thoracic aorta, which is johnnie l in caliber and demonstrates standard 3-vessel arch anatomy. No dissection is seen. Pulmonary vasculature: The main pulmonary arteries are dilated suggesting pulmonary artery hypertensi on. There are no filling defects identified in main, lobar, or segmental pulmonary branches to sugges t pulmonary embolus. Heart: The heart is normal in size and without pericardial effusion. The coronary arteries are densel y calcified. Lungs and pleural spaces: There is moderate to advanced emphysema. No air space consolidation typical for pneumonia or pleural effusion is identified. Foci of scarring/atelectasis are seen throughout sindy th lungs. There is diffuse peribronchial thickening. Debris/secretions are seen within the lower lobe airways, left greater than right. Mediastinum: There is no mediastinal lymphadenopathy. Roya: Clear. Axillae: There is no axillary lymphadenopathy. Upper abdomen: Partially visualized upper abdominal viscera is within normal limits. Skeletal structures: The skeletal structures are osteopenic. No lytic or blastic bony lesions are see n. Degenerative change and hyperkyphosis is noted in the thoracic spine. IMPRESSION: 1. There is no evidence of pulmonary embolus in the main, lobar, or segmental pulmonary arteries. 2. Moderate to severe emphysema. 3. There is no airspace consolidation typical for pneumonia or pleural effusion. 4. Diffuse peribronchial thickening suggests bronchitis/reactive airway disease. 5. Fluid/debris is seen within the lower lobe airways bilaterally, left greater than right. This coul d represent mucous plugging. Correlate clinically for evidence of aspiration. 6. Additional findings as above. ACT 112: Negative or not required by law. Electronically signed by: João Bobo M.D. 05/17/2022 11:55 AM
[2022-05-17] MEDS: SODIUM CHLOR 7% 4 ML NEB NEB SCH ×2 (12:34→19:38)
[2022-05-17] MEDS: ALBUT/IPRATROP 3MG/0.5MG NEB 3 ML VIAL NEB SCH ×3 (12:35→23:43)
[2022-05-17] MEDS: guaiFENesin 600 MG TABCR PO SCH ×2 (13:17→20:23)
[2022-05-17] MEDS: POLYETHYLENE (MIRALAX) 17 GM PACK PO SCH (15:42)
--- NOTE | 2022-05-17 17:26 | XCELERA ---
[id number] \\[id number]___[id number]
--- NOTE | 2022-05-17 22:01 | Electrocardiogram Report ---
Test Reason : Blood Pressure : / mmHG Vent. Rate : 070 BPM Atrial Rate : 070 BPM P-R Int : 144 ms QRS Dur : 078 ms QT Int : 416 ms P-R-T Axes : 075 049 068 degrees QTc Int : 449 ms Sinus rhythm with occasional Premature ventricular complexes Otherwise normal ECG No previous ECGs available Confirmed by Elie Herrera ([id number]) on 05/17/2022 10:01:34 PM Referred By: Marisa Ho Confirmed By:Elie Herrera
[2022-05-18] MEDS: ALBUT/IPRATROP 3MG/0.5MG NEB 3 ML VIAL NEB SCH ×3 (03:56→11:28)
[2022-05-18 06:52] LABS: Basophils # (auto) 0.03 K/uL (0-0.2); Basophils % (auto) 0.4 %; Eosinophils # (auto) 0.16 K/uL (0-0.50); Eosinophils % (auto) 2.1 %; Hematocrit (blood only) 31.1 % (34.1-44.9); Hemoglobin 10.3 g/dl (12.0-16.0); Immature Granulocytes # (auto) 0.03 K/uL (0.00-0.02); Immature Granulocytes % (auto) 0.4 %; Lymphocytes # (auto) 1.98 K/uL (1.2-3.4); Lymphocytes % (auto) 26.3 %; Mean Corpuscular Hemoglobin 30.9 pg (25.0-34.0); Mean Corpuscular Hgb Conc 33.1 g/dL (32.0-36.0); Mean Corpuscular Volume 93.4 fL (80.0-100.0); Mean Platelet Volume 10.4 fL (9.4-12.3); Monocytes # (auto) 0.97 K/uL (0.24-0.82); Monocytes % (auto) 12.9 %; Neutrophils # (auto) 4.37 K/uL (1.4-6.5); Neutrophils % (auto) 57.9 %; Platelet Count 155 K/uL (130-400); RDW Coefficient of Variation 13.9 % (11.5-14.5); RDW Standard Deviation 47.5 fL (36.4-46.3); Red Blood Count 3.33 M/uL (3.93-5.22); White Blood Count 7.54 K/ul (4.8-10.8)
[2022-05-18] MEDS: SODIUM CHLOR 7% 4 ML NEB NEB SCH (07:24)
[2022-05-18 07:35] LABS: Albumin Globulin Ratio 1.3 (0.9-2); Albumin Level 3.5 gm/dl (3.4-5.0); BUN Creatinine Ratio 12.5 (10-20); Bilirubin,Total 0.4 mg/dl (0.2-1.0); Calcium 9.3 mg/dl (8.5-10.1); Creatinine Clr Calc Pharmacy 28.7 ml/min; Est GFR (African American) 57.5 ml/min; Est GFR (Non-African American) 49.6 ml/min; Globulin 2.6 gm/dl (2.5-4.0); Potassium 4.7 mmol/L (3.5-5.1); Total Protein 6.1 gm/dl (6.0-8.3)
--- NOTE | 2022-05-18 07:44 | Hospitalist Progress Note ---
Date of Service May 18, 2022 Assessment & Plan (1) COVID-19: Plan: Admitted with melena, incidentally found positive prior to transfer to our facility as direct admission as O2 dropped to 86 % on RA (no imaging obtained) -- hx smoking, 10-12 cigarettes daily currently, never followed w/ pulm, no prior PFTs or maintenance inhalers Reports nausea/fatigue symptoms since this past Wednesday (05/11), no sick contacts that she is aware of and no prior + Covid testing. Has been vaccinated and boosted x 2 Remains on isolation precautions CRP <0.5, WBC without elevation. Afebrile EKG w/o ischemic changes, noted PACs. NSR on monitor w PACs on telemetry O2 via 2L on admit and was actually 95% on RA evening 05/16 Was utilizing 2L this morning with acute worsening requirements to 5L --> 7L --> 12L oxymask this morning around 11am and patient was evaluated with coarse breath sounds/rales throughout and reported clear/white sputum but not really able to clear secretions very well and added hypertonic saline nebulizers to help CRP repeated, still without elevation Despite patient with IVC filter seen on CTAP placed in [id number] --> ordered CTA for PE given +COVID testing * CTA NEGATIVE for PE, but did note moderate-severe emphysema, NO consolidation typical for PNA or pleural effusion. Fluid/debris is seen within the lower lobe airways bilaterally, left greater than right. This could represent mucous plugging. Correlate clinically for evidence of aspiration. Given acute increase in O2 requirement, appears mucus plugging could account for such, however did check BNP given increased requirement and hyponatremia on AM labs (TSH wnl) and will check ECHO for completeness given no prior records. Hypertonic saline nebs as ordered, changed duonebs to scheduled Continue incentive spirometer as previously ordered (has been using), added flutter valve, mucinex Avoiding Decadron currently in setting of GI bleed/no elevation in inflammatory markers, however if without significant improvements by this evening, will consider adding Azithro/Decadron DVT prophylaxis -- not on heparin/Lovenox in setting of GI bleed, has been ambulating, continue SCDs/jaki hose and monitor for any evidence DVT 05/18 --> Mucus plugging likely 05/17 w increased O2 needs-- titrated to 1L SpO2 96% Continue hypertonic saline nebs/duonebs scheduled, Mucinex, incentive spirometer, flutter valve Will also need outpt pulm f/u for mod-severe emphysema/never had PFTs prior (hx smoking, current .5ppd)-- CM to help w/ pulm f/u will need 2step prior to dc -- will eval prior to ordering in case not going home in next 48hrs (2) GI bleed: Plan: presented from [facility] w/ fatigue, nausea, melena since 05/15. Also tested positive for COVID hgb 11.5, INR 1, BUN 32, Cr 1.[address] [facility]. Noted black melanotic stools +fecal occult, no hx GI bleeding in past (however noted to have passed clots in stool in the past) CTAP obtained given prior reported for obstructions/resection and not passing ga s/abdominal pain on exam 05/16 --> no obstructions. No infectious etiology. Of note, DOES note IVC filter -- again, patient denies known hx PE/DVT and was told that they didn't know what was wrong with her in [id number] w/ the bowel operation which nicked her bowel requiring tx to [place] for "blood infection", ?septic emboli. Req outpatient records for prior surgeries from [facility] consulted but no plans for scope inpatient, can have outpatient follow up and rec'd advancement of diet from clears on admission to regular AHA diet Hgb stable on repeat even with IVF ordered on admit as initially NPO for possible scope No further bowel movements but is passing gas/no pain on exam (does have slight epigastric discomfort -- consider adding carafate pending response) Continue PPI BID -- can convert to PO BID this evening vs AM. Fecal occult ordered for testing for confirmation. Had been taking 200mg ibuprofen couple of times in the afternoon for pain. No NSAIDs Clear liquid diet on 05/16 -> advanced to AHA diet 05/17, passing gas, denies abdominal pain however does have slight epigastric discomfort -- consider adding carafate if any issues Hgb improved on repeat w/ PPI BID Also checked iron studies -- iron deficient. Given Venofer IV on admission, repeated 05/17, 3rd dose for today Monitor for any further bleeding/melanotic stool (fecal occult ordered) (3) Melena: Plan: large melena stool 05/15, + at [facility], nothing since PPI IV BID ordered, GI consulted CTAP as above, monitor CBC/any further bleeding. Encouraged bowel regimen, add miralax daily. She reports passing LOTs of gas, no increased abdominal pain. No obstruction on CTAP (4) H/O: HTN (hypertension): Plan: on nifedipine 30mg , valsartan 160mg daily Had been held while NPO on admit/IVF ordered, nifedipine resumed evening 05/16 Resumed losartan this morning, BP/Cr stable 141/64 Given atherosclerotic plaque on CTAP imaging, check lipids in AM/statin for prevention (5) Emphysema lung: Plan: noted on CTAP, no prior dx or use of maintenance inhalers at home or prior pulmonary follow up/PFT testing outpatient Tx for COVID as outlined above but would rec patient w/ pulm f/u at d/c for outpt PFT, addition LABA/LAMA (6) Tobacco consumption: Plan: current smoker, reports 10-12 cigarettes daily- no cravings at this time/need for nicotine patch encouraged cessation, she is well aware of detriments to her health continued discussions, rec nicotine patch/gum at d/c if patient agreeable Plan continued inpatient stay advanced to regular diet, monitor for any further bleeding added hypertonic saline/changed duonebs to scheduled, incentive spirometer/flutter valve, mucinex Will consult PT/OT for tomorrow Admission and Anticipated Discharge Date Admission Date: May 16, 2022 Results & Data Results & Data ([facility]) Vital Signs (Past 12 Hours) Vital Signs Temp Pulse Resp BP Pulse Ox O2 Del Method O2 Flow Rate 05/18/22 04:57 36.9 C 59 L 19 129/66 96 Nasal Cannula 1.0 05/17/22 23:23 36.9 C 65 18 158/68 H 97 Nasal Cannula 1.0 05/17/22 19:42 37.4 C 63 18 151/62 H 96 Nasal Cannula 1.0 PG Care Time/CCT Total # of Minutes Spent Total Time Spent with Patient: Total time spent is greater than 50% in coordination of care (as documented) at patient's floor/unit and/or counseling patient: Coding Diagnoses COVID-19 U07.1 GI bleed K92.2 Melena K92.1 H/O: HTN (hypertension) Z86.79 Emphysema lung J43.9 Tobacco consumption Z72.0
[2022-05-18] MEDS ORDERED: IRON SUCROSE 300 MG in SODIUM CHLORIDE 0.9% 250 ML IV SCH (08:00)
[2022-05-18] MEDS: guaiFENesin 600 MG TABCR PO SCH (08:14)
[2022-05-18] MEDS: VALSARTAN 80 MG TAB PO SCH (08:14)
[2022-05-18] MEDS: NIFEdipine EXTENDED REL 30 MG TABCR PO SCH (08:14)
[2022-05-18] MEDS: PANTOprazole 40 MG in SYRINGE 0 ML IV SCH (08:14)
[2022-05-18] MEDS: POLYETHYLENE (MIRALAX) 17 GM PACK PO SCH (08:53)
--- NOTE | 2022-05-18 09:37 | Gastroenterology Progress Note ---
Date of Service May 18, 2022 Assessment & Plan (1) COVID-19: (2) Melena: Plan: 81 yo female with history of multiple abd surgeries and adhesions causing bowel obstructions in the past admitted with nausea and 1 episode of melena at home wo recurrence since admitted. Hemodynamically stable. COVID positive with cough. No ongoing gross GI bleeding, blood ct stable for couple of days now w normal BUN. CT wo acute processes - Defer endoscopic workup unless gross GI bleeding noted - PPI IV BID - Avoid NSAIDs - Airborne precautions per COVID protocol - GI to sign off; pls recall prn Admission and Anticipated Discharge Date Admission Date: May 16, 2022 Supervising Physician Co-Signing Physician Notes Patient was seen and examined on 05/18 with EDNA Ortiz whose note reflects our findings and plan. Subjective Pt denies any dark tarry stools. Just had a smear of black stool this AM. No n/v, abd pain. Review of Systems Review of Systems: All systems reviewed & are unremarkable except as noted in HPI & below Physical Exam Constitutional: WD/WN, vitals as above well groomed, cooperative and comfortable Eyes: PERRL, conjunctivae normal, anicteric sclerae ENMT: external ear and nose normal, oropharynx normal Respiratory: normal respiratory effort, lungs clear to auscultation Cardiovascular: RRR, no murmur, no edema Gastrointestinal (Abdomen): normal bowel sounds, soft, nontender, no hepatosplenomegaly Skin: no rashes, warm and dry no jaundice Psychiatric: A+Ox3, euthymic affect Lymphatic: no lymphedema Results & Data ([facility]) Vital Signs (Past 12 Hours) Vital Signs Temp Pulse Pulse Resp BP Pulse Ox O2 Del Method 05/18/22 08:30 66 05/18/22 08:30 Room Air 05/18/22 08:07 36.9 C 65 16 132/69 92 Room Air 05/18/22 07:53 66 18 89 L Room Air 05/18/22 04:57 36.9 C 59 L 19 129/66 96 Nasal Cannula 05/17/22 23:23 36.9 C 65 18 158/68 H 97 Nasal Cannula O2 Flow Rate 05/18/22 08:30 05/18/22 08:30 05/18/22 08:07 05/18/22 07:53 05/18/22 04:57 1.0 05/17/22 23:23 1.0
--- NOTE | 2022-05-18 12:40 | Discharge Summary ---
Date of Service May 18, 2022 Admission HPI Per Admitting Provider 81yo female presented from [facility] with complaints of melena/GI bleed. Nausea, fatigue, black stools that began 05/15. Not on anticoagulation and never had GI bleed. Chronic intermittent crampy abdominal pain. HPI from OSH reports bowel obstructions requiring surgery before. Outside hgb reported 11.5, BUN 32, Cr 1.24. Incidentally also tested positive for COVID. SpO2 92% on room air noted, however prior to transfer appears had been 86% on room air and placed on supplemental O2, currently 97%on 2L. Per patient, nauseated since Wednesday, no vomiting. Has had 3 abdominal surgeries for removal of adhesions. Has pain across lower abdomen. Upon evaluation, patient reporting has had nausea/fatigue since Wednesday. Had some toast on Wednesday, some small amount of macaroni w/ butter on Wednesday. Large melanotic stool yesterday AM, nothing since then. No bowel movements but states she wasn't given anything to eat at [facility] either. Placed on 2L o2 at [facility] for low oxygen. She does have a moist cough but denies feeling short of breath. She notes initial issues with abdominal adhesions in 2000 when she underwent surgery with ex lap for adhesion takedown w/ Dr Stinson, then had recurrent episode in 2009 where she required removal of part of her small bowel and colon as they were twisted upon each other. Then she notes about 5-6 years ago in 2016 she had another episode of abdominal pain requiring surgery and she had her intestines cut and transferred ultimately to [place]. All other surgeries. She notes for about the past 10 months has had lower abdominal cramping and issues with moving her bowels since December. She does try and watch what she eats, but had been taking Zofran over the summer with worsening constipation. She does have lower abdominal pain currently, worse in LLQ and suprapubic region but reported generalized cramping/pain. No nausea at present but had been given IV Zofran at [place] w/ control. No history of PE/DVT but has had clots in stool in past. Has been vaccinated for COVID and booster x 2. Did not get 3rd booster yet. Currently + for covid. Does have congestion but unable to bring up any sputum. Discussed obtaining CTAP and CXR for eval, labs pending, and GI consultation. Will order protonix IV BID for now. She is asking about if she is able to eat. Admission Exam Per Admitting Provider General: frail elderly woman sitting up in bed, NAD, just had labs drawn, general pallor HEENT: head normocephalic, atraumatic, mm slightly dry, trachea midline Resp: diminished in the bases w/ faint bilateral crackles, no wheezing, on 2L NC, no distress/tachypnea CV: RRR, no m/r/g, no pitting edema/calf tenderness, pulses palpable GI: +BS throughout (possibly slightly hypoactive RUQ), minimally tender epigastric region, moderate tenderness reported w/ palpation LLQ/suprapubic region, +slight distension, no guarding/rigidity, prior abd incisions noted MSK/Neuro: moves all extremities, follows commands, no focal deficit Psych: AOx3, pleasant and cooperative Skin: cool, dry Principal Diagnosis GI Bleed, Melena, COVID -19 Discharge Exam General: frail elderly woman sitting up in bed, NAD, on room air HEENT: head normocephalic, atraumatic, mmm, trachea midline Resp: prolonged expiratory phase, fine bilateral crackles, resolution of coarse rales heard on examination yesterday, improvement of aeration, on room air CV: RRR, no m/r/g, no pitting edema/calf tenderness, pulses palpable GI: +BS, less distention, nontender, possible slight epigastric/LUQ discomfort MSK/Neuro: no focal deficit, no slurred speech/facial droop, follows commands Psych: AOx3, pleasant and cooperative Skin: cool, dry Discharge Data Allergies Allergy/AdvReac Type Severity Reaction Status Date / Time No Known Allergies Allergy Unverified 05/16/22 11:27 Consultations 05/16/22 10:17 Consult Gastroenterology Routine 05/17/22 11:00 HIM [Consult Health Information Management] Routine Ordered Studies Abdomen/Pelvis CT 05/16/22 11:01 CT OF THE ABDOMEN AND PELVIS WITH CONTRAST CLINICAL HISTORY: GI bleed, melena, hx obstruction, abdominal pain. COMPARISON STUDY: None. TECHNIQUE: Following IV administration of 86 mL of Optiray, axial images of the abdomen and pelvis were obtained from the lung bases to the proximal femurs. Images were reviewed in the axial, sagittal, and coronal planes. IV contrast was administered without complication. Automated exposure control was utilized for the study. A dose lowering technique was utilized adhering to the principles of ALARA. CT DOSE: 211.58 mGy.cm FINDINGS: Lung bases are unremarkable. No pneumatosis, free air or portal venous gas is present. Liver, adrenal glands, kidneys and pancreas are unremarkable. Calcifications within the renal sinuses are likely vascular in etiology. There is no hydronephrosis. There is no biliary or pancreatic ductal dilatation. Pancreatic glandular atrophy is noted. Hypodensity along the splenic capsule is likely chronic. IVC filter is in place. There is extensive plaque within the abdominal aorta and branch vessels. Abdominal aorta is ectatic, measuring 2.6 cm. There is no evidence for a bowel obstruction. Caliber and wall thickness of small and large bowel are normal. Colonic diverticulosis is noted without evidence for acute diverticulitis. There is no lymphadenopathy. No ascites is present. No acute fracture or suspicious lesion is identified within the visualized skeletal structures. IMPRESSION: 1. No acute process within the abdomen or pelvis. 2. No bowel obstruction. No bowel wall thickening. Colonic diverticulosis wit hout evidence for acute diverticulitis. No source for GI bleed identified. 3. Extensive atherosclerotic plaque of the abdominal aorta and branch vessels. Ectatic abdominal aorta, measuring 2.6 cm. ACT 112: Negative or not required by law. Electronically signed by: Gualberto Delgadillo M.D. 05/16/2022 11:55 AM Chest X-Ray 05/16/22 11:01 XR chest 1V portable CLINICAL HISTORY: COVID, hypoxia COMPARISON STUDY: No previous studies for comparison. FINDINGS: Lung volumes are normal. Lungs are clear. There is no pneumothorax or pleural effusion. Cardiac size is normal. Mediastinal contours are normal. There is no evidence for pulmonary edema. IMPRESSION: No acute cardiopulmonary findings. ACT 112: Negative or not required by law. Electronically signed by: Gualberto Delgadillo M.D. 05/16/2022 12:35 PM Chest CTA 05/17/22 10:48 CT ANGIOGRAM OF THE CHEST CLINICAL HISTORY: Cough and dyspnea. Covid. COMPARISON STUDY: Chest x-ray dated 05/16/2022. TECHNIQUE: Following the IV administration of 90 cc of Optiray 320, CT angiogram of the chest was performed from the upper abdomen to the thoracic inlet utiliz ing the pulmonary embolus protocol. Images are reviewed in the axial, sagittal, and coronal planes. 3-D MIPS images are created and assessed. IV contrast was administered without complication. A dose lowering technique was utilized adhering to the principles of ALARA. CT DOSE: 240.68 mGy.cm FINDINGS: Thyroid: Normal in size and heterogeneous attenuation. Thoracic aorta: There is advanced atherosclerotic calcification of the thoracic aorta, which is normal in caliber and demonstrates standard 3-vessel arch anatomy. No dissection is seen. Pulmonary vasculature: The main pulmonary arteries are dilated suggesting pulmonary artery hypertension. There are no filling defects identified in main, lobar, or segmental pulmonary branches to suggest pulmonary embolus. Heart: The heart is normal in size and without pericardial effusion. The coronary arteries are densely calcified. Lungs and pleural spaces: There is moderate to advanced emphysema. No air space consolidation typical for pneumonia or pleural effusion is identified. Foci of scarring/atelectasis are seen throughout both lungs. There is diffuse peribronchial thickening. Debris/secretions are seen within the lower lobe a irways, left greater than right. Mediastinum: There is no mediastinal lymphadenopathy. Roya: Clear. Axillae: There is no axillary lymphadenopathy. Upper abdomen: Partially visualized upper abdominal viscera is within normal limits. Skeletal structures: The skeletal structures are osteopenic. No lytic or blastic bony lesions are seen. Degenerative change and hyperkyphosis is noted in the thoracic spine. IMPRESSION: 1. There is no evidence of pulmonary embolus in the main, lobar, or segmental pulmonary arteries. 2. Moderate to severe emphysema. 3. There is no airspace consolidation typical for pneumonia or pleural effusion. 4. Diffuse peribronchial thickening suggests bronchitis/reactive airway disease. 5. Fluid/debris is seen within the lower lobe airways bilaterally, left greater than right. This could represent mucous plugging. Correlate clinically for evidence of aspiration. 6. Additional findings as above. ACT 112: Negative or not required by law. Electronically signed by: João Bobo M.D. 05/17/2022 11:55 AM 05/17/22 ECHOCARDIOGRAM Normal left ventricular size and systolic function. EF 65-70%. No regional wall motion abnormalities. Moderate concentric left ventricular hypertrophy. Mild biatrial dilation. Sclerotic aortic valve without significant stenosis. Mild mitral regurgitation. Top-normal estimated right ventricular systolic pressure. No prior study available for comparison Hospital Course (1) COVID-19: Admitted with melena, incidentally found positive prior to transfer to our facility as direct admission as O2 dropped to 86 % on RA (no imaging obtained) -- hx smoking, 10-12 cigarettes daily currently, never followed w/ pulm, no prior PFTs or maintenance inhalers Reports nausea/fatigue symptoms since this past Wednesday (05/11), no sick contacts that she is aware of and no prior + Covid testing. Has been vaccinated and boosted x 2 Remains on isolation precautions CRP <0.5, WBC without elevation. Afebrile EKG w/o ischemic changes, noted PACs. NSR on monitor w PACs on telemetry O2 via 2L on admit and was actually 95% on RA evening 05/16 but increaed to 2L AM 05/17 but then rapidly increased requirements to 5L --> 7L --> 12L around 11am and was evaluated with coarse breath sounds/rales throughout and reported clear/white sputum but not able to cough very much up. CTA obtained to check for PE given COVID despite patient w/ IVC for real unknown reason to her --> NEGATIVE, but noted Fluid/debris is seen within the lower lobe airways bilaterally, left greater than right. Likely representing mucus plugging Of note, does have mod-severe emphysema --> CM arranging outpt pulmonology in follow up for PFT testing/addition of maintainance inhalers/etc based on testing Had ordered hypertonic saline nebs BID/flutter valve w/ improvement and clearing of secretions and titration of oxygen to room air Repeat CRP still NOT elevated, <0.5 no steroids given, especially given GI bleeding/melena on admission Remained stable on room air, denied shortness of breath and felt stable for discharge Patient to continue mucinex BID, incentive spirometer, flutter valve/isolation precautions at discharge Asked RN to call ER for home pack with pulse oximeter to monitor at home/alert if any low sats <88% given severe emphysema Obtained 2 step prior to discharge --> NO NEED FOR SUPPLEMENTAL OXYGEN (2) GI bleed: presented from [facility] w/ fatigue, nausea, melena since 05/15. Also tested positive for COVID hgb 11.5, INR 1, BUN 32, Cr 1.24 at [facility]. Noted black melanotic stools +fecal occult, no hx GI bleeding in past (however noted to have passed clots in stool in the past) CTAP obtained given prior reported for obstructions/resection and not passing gas/abdominal pain on exam 05/16 --> no obstructions. No infectious etiology. Of note, DOES note IVC filter -- again, patient denies known hx PE/DVT and was told that they didn't know what was wrong with her in [id number] w/ the bowel operation which nicked her bowel requiring tx to [place] for "blood infection", ?septic emboli. Req outpatient records for prior surgeries from [place] +fecal occult confirmed here GI consulted -- no plans for inpatient scope Clear liquids advanced to regular diet without issue, no n/v Did have small darkened BM this morning but could be from old blood making it's way through given no prior BM since initial episode of melena w/ presentation to [place] [place] Protonix had been ordered IV BID -- > converted to PO BID at discharge AVOIDANCE of NSAIDs -- had been taking 200mg ibuprofen couple of times a week for pain --> to use tylenol for pain at d/c, avoid all nsaids recommended Iron panel checked -- iron/trans % sat low --> venofer x 3 given inpatient Repeat hgb 10.3 prior to discharge even with IVF given on admission, improved from day prior GI to arrange for outpatient endoscopy. Patient to monitor for any increased pain/bleeding/SOB/CP/lightheaded/dizziness and return to ER if occurs --> Prior to d/c patient requested f/u [facility]. CM navigator working to arrange follow up appointment for patient at discharge. (3) Melena: large melena stool 05/15, + at [facility], nothing since PPI IV BID ordered, GI consulted -- continue ppi bid at d/c, outpatient follow up for endoscopy (4) H/O: HTN (hypertension): nifedipine 30mg , valsartan 160mg daily Had been held while NPO on admit/IVF ordered, nifedipine resumed evening 05/16 and valsartan AM 05/17 BP elevated but stable in inpatient setting --> outpatient follow up/titrations if needed. She does have moderate concentric LVH on ECHO, mild biatrial dilation, sclerotic aortic valve without significant stenosis, mild mitral regurgitation, top normal estimated RVSP Also noted extensive atherosclerotic plaque of abdominal aorta and branch vessels --> consider adding stating in f/u with PCP. Lipid panel checked and acceptable, however given plaque may benefit from addition of statin -- can discuss with PCP Also strongly encouraged smoking cessation No reported hx afib, no afib on telemetry. Has been NSR w/ PACs, denied palpitations/lightheaded/dizziness If develops any symptoms may need to consider further work-up outpatient (5) Emphysema lung: noted on CTAP, no prior dx or use of maintenance inhalers at home or prior pulmonary follow up/PFT testing outpatient Tx for COVID as outlined above but would rec patient w/ pulm f/u at d/c for o utpt PFT, addition LABA/LAMA pending PFT testing outpatient May benefit from sleep study/NIPPV on outpatient basis given likely top normal estimated RVSP (again, CT PE negative for PE as above) but can be arranged by pulm outpatient Reports breathing stable/much improved encouraged continued cessation of tobacco -- she states she will "give it her best shot" (6) Tobacco consumption: current smoker, reports 10-12 cigarettes daily- no cravings at this time/need for nicotine patch encouraged cessation, she is well aware of detriments to her health and will given it her best shot (7) Iron deficiency: iron panel checked given anemia, no prior baseline iron low/trans% sat 11 -- Venofer IV while inpatient provided Hgb stable/improved on repeat 10.3 (b12/folate wnl) Plan planning for discharge home this afternoon w/ pulse ox/continued monitoring at home and follow up with GI outpatient for EGD/further eval continue protonix 40mg BID at discharge, avoid NSAIDs For COVID -- to continue isolation precautions/incentive spirometer/flutter valve/mucinex BID. Albuterol HFA sent prn and to monitor pulse ox at home Total Time Total Time Spent Total Time Spent (In Minutes): 60 Discharge Plan Discharge Items Patient Disposition: Home - Self-Care Reason For Visit: GI BLEED Discharge Diagnosis: Melena, GI bleed, COVID-19 Goals: You have been hospitalized for an acute medical problem. During your stay at [facility], we have made an effort to correct the problem that brought you to the hospital while keeping you as comfortable as possible. Medications were used to bring your condition under control and your discharge instructions will include directions for any medications you should take after leaving the hospital. Please make sure you see your Primary Care Provider as part of your follow up plan. Activity: As commented below Non-emergency contact: Primary Care Provider, Cardiology Tech and [employer]per Call non-emergency contact if: you have any medication questions, your symptoms worsen and your pain is not controlled Follow-up/Referrals: Marcial Scott DO [Physician] - Taran Coyle MD [Physician] - 06/16/22 10:45 am (Please arrive 15 minutes prior to appointment time) Marisa Novoa DO [Outside Practitioners] - 05/29/22 8:00 am (LEFT MESSAGE FOR OFFICE TO CALL HOME STAGING SPECIALIST BACK TO MAKE THIS FOLLOW-UP APPOINTMENT *APPT SCHEDULED FOR 05/29 0800) Diet: Heart Healthy Addtl Attending Provider Instructions: You have been hospitalized for melena (dark black stools). Imaging didn't show any infectious etiology in the abdomen/pelvis or evidence for obstruction. You were placed on Protonix (pantoprazole) 40mg twice daily given likely upper GI source and you will continue this at discharge and GI was consulted and they will be arranging for you to have an outpatient colonoscopy. You may still have some small amounts of darkened stools, however your hemoglobin/blood counts have been stable/improved on repeat and no evidence for active GI bleeding since initiation of medications. Monitor for any increased diarrhea on protonix as discussed. Can continue Miralax as needed for no BM in 1-2days to ensure your bowels are moving. Please AVOID ALL NSAIDs -- Motrin/Aleve/naproxen. Use tylenol for pain please. You were also found to have been positive for COVID. We checked inflammatory markers and they were not elevated, indicating not much benefit from things like steroids (however you may need them in the future if any worsening shortness of breath/fevers/etc). You did require oxygen at times, and increased amounts of oxygen prompted getting a CT of your chest (which was negative for any blood clots) but did show evidence for mucus plugging (likely from smoking history) and this improved with nebulizer treatments/Mucinex and use of incentive spirometer/flutter valve to help clear secretions and have been titrated to room air and remained stable. It does show evidence for moderate-severe emphysema and we are working on getting you outpatient pulmonology follow up to obtain PFT testing/further care/inhalers/etc in the future. I have sent an albuterol inhaler to use in the meantime for any shortness of breath or low oxygen levels. We tested to see if you needed any oxygen with activity or at rest before discharge and you stayed stable on room air. You should continue to monitor your oxygen levels at home and it is STRONGLY encouraged to avoid any smoking at discharge. You should continue to maintain isolation precautions at discharge and wash your hands/wear a mask when around others. Please follow up with GI for outpatient endoscopy (EGD/colonoscopy) and we are working on getting you an appointment with [facility] per your request. Please follow up with pulmonology for outpatient PFT testing and follow up on your COVID given underlying emphysema. Please follow up with your primary care provider in the next 7-10 days to monitor your status after discharge from the hospital. Please RETURN to the nearest emergency department with any increased bloody stool/large black bowel movements/fever/chest pain/increased shortness of breath, or for any other symptoms concerning for you. It has been a pleasure being a part of the medical team providing for you while you have been in the hospital. Take care! Pending Studies at Discharge: No Stand-Alone Forms: My [facility] [employer], Smoking Cessation Medications and DC Order Prescriptions: New guaifenesin [Mucinex] 600 mg Tablet Extended Release 12hr 1,200 mg PO Q12 30 Days Qty: 120 0RF pantoprazole 40 mg tablet,delayed release (DR/EC) 40 mg PO BID 30 Days Qty: 60 0RF albuterol sulfate 90 mcg/actuation HFA aerosol inhaler 2 inh inhalation Q4H PRN (Reason: shortness of breath or wheezing) Qty: 6.7 0RF Continued nifedipine 30 mg Tablet Extended Release 24hr 30 mg PO DAILY valsartan 160 mg Tablet 160 mg PO DAILY acetaminophen 650 mg Tablet Extended Release 1,300 mg PO HS PreserVision AREDS [id number] Capsule 1 cap PO BID melatonin 5 mg Tablet 5 mg PO HS PRN (Reason: Sleep) Discharge Orders: Discharge Order (Routine); Ordered 05/18/22 Ordered By: Lucy Aden Admission Data Admit Date/Time: 05/16/22 09:16 Attending Provider: Francisco Thakkar Admit Provider: Lucy Aden Primary Care Provider: PCP,NO Other Providers: Amberly Isaac Coding Level of Care Code D/C DAY MANAGEMENT >30 MINS Diagnoses COVID-19 U07.1 GI bleed K92.2 Melena K92.1 H/O: HTN (hypertension) Z86.79 Emphysema lung J43.9 Tobacco consumption Z72.0 Iron deficiency E61.1
== END 2022-05-18 16:06 | disposition home or self-care (01) | DRG 178 ==
LOC: 2S 05-16 09:16 → SUATTDRO 05-16 09:16